=== PATIENT | male | born 1990 | race African-American/Black ===

== ENCOUNTER 2018-09-07 11:21 | Outpatient (CLI) | payer OTHER | END 2018-09-07 11:22 | disposition home or self-care (01) | LOC: DI 11:21 | PROVIDERS: ATTEND Family Medicine | DX: R94.31 Abnormal electrocardiogram [ECG] [EKG] (principal); I51.7 Cardiomegaly | CPT/HCPCS: 93306 ==

== ENCOUNTER 2019-05-23 14:11 | Outpatient (CLI) | payer OTHER ==
[2019-05-23 16:12] VITALS: BP 121/90
--- NOTE | 2019-05-23 16:12 | SLEEP CARE CONSULTATION ---
Information from patient questionnaire entered by Crista Flores. I have reviewed and concur with the information entered by Crista Flores. This document represents the service I personally performed and the decisions made by me, Leodan Das MD, [facility]. History of Present Illness Reason for Visit: New patient Chief Complaint: reports: Fatigue, Frequent awakenings at night Duration of Symptoms: 3 years Usual bedtime: 0645-1429 Time it takes to fall asleep: not long Snores at night: Yes Observed to quit breathing while asleep: No Sleeps alone due to snoring: No Number of times waking at night: 3-5 Reasons for waking at night: reports: Other (movement) Toss, Turn, or Twitch while sleeping: Yes Recalls having dreams: Yes Usually gets out of bed at: [id number] Feels refreshed in the morning: No Morning headache: No Sleepy or fatigued during the day: Yes Ever fallen asleep while driving: Yes Takes day naps: No Dreams during day naps: No Prior sleep studies: No Additional HPI information: I had the pleasure of seeing Mr. Collazo today regarding the possibility of him having a sleep disorder. As you know, he is a 29 year old gentleman who complains of frequent awakenings and irregular heartbeat. His medical doctor recommended a sleep study. The patient tells me that he normally goes to bed around 11 pm, and it takes him approximately just a few minutes to fall asleep. He has been told that he snores lightly at night. He has never been observed to stop breathing in his sleep. His can still sleep in the same bed. He can recall waking up on the average of 3 - 5 times during the night. Most of the time he wakes up because of his wifes and daughters movement. He has never awakened occasionally because of his own snoring, choking, and having to gasp for air. There is a lot of tossing and turning in his sleep. No somniloquy (sleep talking) or somnambulism (sleep walking). Generally he can recall having dreams. In the morning he usually gets up out of the bed around 4 - 6 a.m. not feeling refreshed nor rested. He usually does not have a morning headache. During the day he complains of feeling sleepy and fatigued. His score on [place] Sleepiness Scale is 12 out of 24. He has never fallen asleep while driving nor has had any accident due to sleepiness. He usually does not take naps during the day. Upon falling asleep during the day he denies having vivid dreams. He has never had sleep paralysis, experienced cataplexy or symptoms of restless leg syndrome. He denies having impaired concentration during the day. 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 Patient is and lives in [place]. Have you smoked in the past 12 months: No (cigars about 2 per year) Alcohol use: Yes Alcohol amount and frequency: 2-3/weekend Caffeine use: Yes Caffeine amount and frequency: 1-2 every other day Family History Family history of sleep disordered breathing: Yes Family Hx Sleep Apnea: Other: Snoring (cousins) Allergies and Home Medications Drug allergies reviewed: Yes Home medication list reviewed: Yes Review of Systems Weight gain over past 5 years: 30-50 Cardiovascular: reports: high blood pressure Respiratory: reports: shortness of breath Gastrointestinal: denies: heartburn, difficulty swallowing, nausea, vomitting, diarrhea, abdominal pain, other Urinary: denies: incontinence, frequency, urgency, impotence, other Neurological: denies: headaches, seizure, head trauma, disorientation, speech dysfunction, gait or balance problems, fainting or unconsciousness, other Psychiatric: denies: Attention Deficit Hyperactivity, anxiety, depression, mood disorder, claustrophobia, other Ear/Nose/Throat: denies: nasal congestion, sinus problems, nose bleeds, dry mouth/throat, hoarseness, injury to nose, tonsillectomy, wisdom teeth removed, other Endocrine: denies: thyroid disease, history of goiter, sluggishness, too hot or cold, excessive thirst, increased appetite, increased urination, unexplained weakness, other Musculoskeletal: reports: joint pain, back pain Immunologic: reports: sneezing Physical Exam Vital signs obtained and entered by: Dr. Das Blood Pressure: 121/90 Cuff size: regular Heart Rate: 83 O2 Saturation: 97 Height: 6 ft 3 in Weight: 280 lb Body Mass Index: 34.9 BMI Classification: Obesity Class 1 Neck circumference: 17.5 Mood/affect: normal HEENT: No craniofacial malformation Nostrils: patent to airflow Turbinates: normal Septum: midline Mouth and throat: narrow oropharynx Soft palate: long Hard palate: normal Uvula: normal Uvula visualization: 50% Mallampati Class II Tongue: normal in size Tonsils: small Chin and jaw: normal size and position Neck: normal w/o lymphadenopathy or thyromegaly Heart: regular rate and rhythm Lungs: clear bilaterally Abdomen: soft, non-tender Extremities: no edema or clubbing Neurologic: intact, no focal deficits Impression and Plan IMPRESSION: 1. Obstructive Sleep Apnea-Hypopnea Syndrome, as suggested by history of loud and irregular snoring, frequent awakenings during the night, unrefreshed sleep, cognitive impairment, and daytime hypersomnolence. Narrow oropharynx and obesity are common predisposing factors for obstructive sleep apnea-hypopnea syndrome. Untreated obstructive sleep apnea can also cause hypertension. Pathophysiology of sleep-disordered breathing was discussed. I recommend proceeding to polysomnography to confirm the diagnosis and to assess severity. If he has significant sleep disordered breathing, a manual CPAP titration study will also be performed to find the optimal treatment pressure. I informed the patient of what the sleep studies involve and after some discussion, he agreed to proceed. Plan: 1. Schedule polysomnography 2. Avoid long distance driving or when feeling sleepy. 3. Avoid alcohol, sedative and muscle relaxant around bedtime. 4. Attempt to lose weight. 5. Return in 1 to 2 weeks after the study to discuss results and initiate therapy. I spent 100% of this 20 minute visit face to face with the patient with greater than 50% of this was spent time counseling the patient and coordination of care.
== END 2019-05-23 14:12 | disposition home or self-care (01) ==
LOC: SC 14:11
PROVIDERS: ATTEND Internal Medicine Pulmonary Disease
DX: R06.83 Snoring (principal); G47.8 Other sleep disorders; R41.89 Other symptoms and signs involving cognitive functions and awareness; G47.10 Hypersomnia, unspecified; I49.9 Cardiac arrhythmia, unspecified; E66.9 Obesity, unspecified; Z68.34 Body mass index [BMI] 34.0-34.9, adult
CPT/HCPCS: 99203; 99212

== ENCOUNTER 2019-06-08 19:33 | Outpatient (CLI) | payer OTHER | END 2019-06-08 19:34 | disposition home or self-care (01) | LOC: SC 19:33 | PROVIDERS: ATTEND Internal Medicine Pulmonary Disease | DX: G47.33 Obstructive sleep apnea (adult) (pediatric) (principal); G47.63 Sleep related bruxism | CPT/HCPCS: 95810 ==

== ENCOUNTER 2019-07-11 13:45 | Outpatient (CLI) | payer OTHER ==
[2019-07-11 14:47] VITALS: BP 130/90
--- NOTE | 2019-07-11 14:47 | SLEEP CARE CONSULTATION ---
Information from patient questionnaire entered by Crista Flores. I have reviewed and concur with the information entered by Crista Flores. This document represents the service I personally performed and the decisions made by me, Cindy Rocha RN, MSN, [employer]. History of Present Illness Initial [place] Sleepiness Scale score: 12 Current [place] Sleepiness Scale score: 14 Additional HPI information: [facility] returns for follow up and results of the recently performed polysomnography. I explained the pathophysiology behind obstructive sleep apnea. We then spent quite a bit of time discussing different treatment options. For mild obstructive sleep apnea, surgery and oral appliance are alternatives to nasal CPAP therapy but in moderate or severe cases, nasal CPAP is the most effective and reliable treatment. Because apnea is primarily in supine position, then positional management therapy could be effective. Methods discussed such as positioning with pillows, using a T-shirt with tennis balls in the back, and shown commercial products that have a pillow format on back to prevent supine sleep. I reviewed the impact of weight changes on sleep apnea and strongly recommended losing weight. After some discussion, the patient opted to go with the nasal CPAP therapy . However, he is transferring to the [facility] next week so there will be no time to set him up with CPAP or do another sleep study to find optimal pressure. Patient counseled not drink alcohol less than 4 hours before bedtime as it can increase snoring and apnea. Patient was cautioned about risks of drowsy driving until sleepiness symptoms resolve. Patient denies drowsy driving. [facility] patient education on snoring and sleep apnea given and reviewed. Allergies and Home Medications Known drug allergies: No Home medication list reviewed: Yes Allergy and home medication list: Amlodipine 5mg daily Review of Systems Review of systems same as previous: Yes Physical Exam Blood Pressure: 130/90 (no blood pressure medication yet. ) Cuff size: long Heart Rate: 80 O2 Saturation: 98 Height: 6 ft 3 in Weight: 277 lb 3.2 oz Body Mass Index: 34.6 BMI Classification: Obesity Class 1 Impression and Plan 1. Obstructive Sleep Apnea-Hypopnea Syndrome, mild, with lowest oxygen saturatio n of 82%. Obviously this is the cause of the patients symptoms of unrefreshed sleep, and excessive daytime sleepiness. Positive pressure therapy could benefit his hypertension. . As mentioned above, the patient will be started [place] the apnea is more severe supine. There is not enough time to set up treatment before he leaves next week. Thus he is to contact his PCP here to see if can start the referral process to another sleep specialist. * Follow up with new sleep provider after transfer to start treatment process. * Attempt to lose weight. * Avoid alcohol consumption near bedtime. * The patient is again cautioned about driving until sleepiness completely resolves. * Contact this office if any concerns before he moves. * Addendum: My patient placement coordinator was able to find a DME here to set him up with [facility] before he transfers that has a [employer] company in the area he is moving. I called patient and he is interested in starting CPAP. I discussed PAP tips for initiating therapy and will send the [facility] brochure to him for reference. Once he transfers, he is to obtain a referral for a sleep specialist for follow up from his new PCP when he establishes care. Patient to contact me if any questions during this process. My patient placement coordinator will inform him of [employer] set up. I also answered his questions about how to lose weight due to his difficulty in past. He is advised to request a referral to a casing blower. He can start process by tracking his dietary intake to see how he can modify his diet. He is aware to reduce portions. I also discussed healthy content and to refrain from refined foods and sugary drinks. In addition, I discussed how exercise affects weight loss. Time Spent with Patient (minutes): 32 I spent 100% of this visit face to face with the patient with greater than 50% of this was spent time counseling the patient and coordination of care.
== END 2019-07-11 13:46 | disposition home or self-care (01) ==
LOC: SC 13:45
PROVIDERS: ATTEND Nurse Practitioner Family
DX: G47.33 Obstructive sleep apnea (adult) (pediatric) (principal); E66.9 Obesity, unspecified; Z68.34 Body mass index [BMI] 34.0-34.9, adult
CPT/HCPCS: 99212; 99214